=== PATIENT | male | born 1955 | race Caucasian/White ===

== ENCOUNTER 2018-09-11 14:24 | Outpatient (CLI) | payer OTHER ==
--- NOTE | 2018-09-11 15:50 | CT ---
CT ANGIOGRAM THORAX AND ABDOMEN WITH IV CONTRAST AND 3-D RECONSTRUCTIONS CLINICAL INDICATION: Follow-up thoracic aortic aneurysm. COMPARISON: 06/02/2016 FINDINGS: Pulmonary arteries: No filling defects are seen in the pulmonary arteries to suggest a pulmonary embo brady. Aorta and arterial vessels: There is stable mild ectasia of the ascending thoracic aorta measuring 3. 8 cm. There is no evidence of an aneurysm involving the thoracic or abdominal aorta, and there is no evidence of an aortic dissection. Mild atherosclerotic plaque and calcifications are seen in the i nfrarenal abdominal aorta. Visualized proximal common iliac arteries are patent. Origin of the great vessels are patent. The celiac, superior mesenteric, and inferior mesenteric arteries are patent. Single patent bilateral renal arteries are again seen. Lungs: Clear without evidence of consolidation or pleural effusion. Mediastinum: There is no evidence of lymphadenopathy. Thyroid gland: Normal CT appearance. Osseous structures: Degenerative changes are seen in the thoracic spine. Postsurgical changes related to anterior cervical fusion of the lower cervical spine are partially imaged. Bilateral pars defects are seen at L5 with grade 1 anterolisthesis noted. Chest wall: No abnormality visualized. Abdomen: Too small to characterize hypodense lesions are seen in the left hepatic lobe which are stab le in size compared to prior noncontrasted CT examination in 2017. The spleen, pancreas, bilateral adrenal glands, and kidneys demonstrate a normal CT appearance for ar terial phase of imaging. A [id number] amount of retained fecal material is seen in the colon. Tiny fat-containing umbilical hernia. IMPRESSION: 1. The thoracic aorta is mildly ectatic. There is no evidence of an aneurysm involving the thoracic o r abdominal aorta, and there is no evidence of an aortic dissection. 2. Mild atherosclerotic plaque in the infrarenal abdominal aorta. 3. Stable subcentimeter too small to characterize hypodense lesions left hepatic lobe. 4. Spondylolisthesis lumbosacral junction.
== END 2018-09-11 14:25 | disposition home or self-care (01) ==
LOC: BICCT 14:24
PROVIDERS: ATTEND Internal Medicine Cardiovascular Disease
DX: I71.2 Thoracic aortic aneurysm, without rupture (principal); I10 Essential (primary) hypertension; I77.810 Thoracic aortic ectasia; I70.0 Atherosclerosis of aorta; M43.17 Spondylolisthesis, lumbosacral region; K76.9 Liver disease, unspecified
CPT/HCPCS: 71275; 82565

== ENCOUNTER 2021-05-14 14:35 | Outpatient (CLI) | payer BC | END 2021-05-14 14:36 | disposition home or self-care (01) | LOC: BICRAD 14:35 | PROVIDERS: ATTEND Family Medicine | DX: M54.2 Cervicalgia (principal); M47.812 Spondylosis without myelopathy or radiculopathy, cervical region; Z98.1 Arthrodesis status | CPT/HCPCS: 72052 ==

== ENCOUNTER 2022-11-29 09:09 | Emergency (ER) | payer MEDICARE ==
[2022-11-29] MEDS ORDERED: Ketorolac Tromethamine 30 MG/ML VIAL ONE (09:31)
[2022-11-29 10:41] LABS: #Monocytes 0.6 thou/uL (0.11-0.59); %Basophils 0.2 % (0.0-1.0); %Eosinophils 0.2 % (0.0-10.0); %Lymphocytes 12.4 % (21.0-51.0); %Monocytes 4.7 % (0.0-10.0); %Neutrophils 80.9 % (42.0-75.0); Hematocrit 36.3 % (42.0-52.0); Hemoglobin 10.5 g/dL (14.0-18.0); Mean Corpuscular HGB CONC 28.9 g/dL (32.0-36.0); Mean Corpuscular Hemoglobin 21.4 pg (27.0-31.0); Mean Corpuscular Volume 73.9 fl (78.0-98.0); Mean Platelet Volume 9.8 fL (7.4-10.4); Platelet Count 306 10x3/uL (130-400); RBC Distribution Width 17.8 % (11.5-14.5); Red Blood Cell (RBC) Count 4.91 mill/uL (4.70-6.10); White Blood Cell (WBC) Count 12.4 10x3/uL (4.8-10.8)
[2022-11-29 11:22] LABS: CellaVision Operator ID LAB.GE; Elliptocytes SLIGHT = 2-5 cells HPF (0-1); Microcytosis SLIGHT = 6-15 cells HPF (0-5); Platelet Adequacy Comment Platelets Normal; Polychromasia MODERATE = 3-4 cells HPF (0-2)
[2022-11-29 11:44] LABS: ALT (SGPT) 25 U/L (8-55); AST (SGOT) 18 U/L (5-34); Albumin 4.6 g/dL (3.4-4.8); Alkaline Phosphatase 73 U/L (40-110); Anion Gap 14 mmol/L (10-20); BUN (Urea Nitrogen) 19 mg/dL (8.4-25.7); Bilirubin, Total 0.8 mg/dL (0.2-1.2); Calc. Creatinine Clearance 0 mL/min (70-130); Calcium 9.5 mg/dL (7.8-10.44); Carbon Dioxide 24 mmol/L (23-31); Chloride 104 mmol/L (98-107); Estimated GFR 67; Globulin 2.8 g/dL (2.4-3.5); Glucose 126 mg/dL (80-115); Protein, Total 7.4 g/dL (5.8-8.1); Sodium 138 mmol/L (136-145)
== END 2022-11-29 12:20 | disposition short-term general hospital (02) ==
LOC: ERS 09:09
DX: M54.17 Radiculopathy, lumbosacral region (principal); M51.36 Other intervertebral disc degeneration, lumbar region; I10 Essential (primary) hypertension; Z79.899 Other long term (current) drug therapy; Z79.82 Long term (current) use of aspirin
CPT/HCPCS: 36415; 72131; 80053; 85025; 85652; 86140; 96372; J1885

== ENCOUNTER 2023-01-01 09:17 | Inpatient (IN) | payer MEDICARE ==
[2023-01-01 09:40] LABS: #Basophils 0.1 thou/uL (0.0-0.2); #Eosinphils 0.3 thou/uL (0.0-0.7); #Monocytes 0.5 thou/uL (0.11-0.59); #Neutrophils 3.6 thou/uL (1.40-6.50); %Basophils 0.9 % (0.0-1.0); %Eosinophils 3.8 % (0.0-10.0); %Lymphocytes 34.4 % (21.0-51.0); %Monocytes 7.6 % (0.0-10.0); %Neutrophils 52.4 % (42.0-75.0); Hematocrit 38.2 % (42.0-52.0); Hemoglobin 11.4 g/dL (14.0-18.0); Mean Corpuscular HGB CONC 29.8 g/dL (32.0-36.0); Mean Corpuscular Hemoglobin 21.4 pg (27.0-31.0); Mean Corpuscular Volume 71.8 fl (78.0-98.0); Mean Platelet Volume 9.7 fL (7.4-10.4); Platelet Count 297 10x3/uL (130-400); Red Blood Cell (RBC) Count 5.32 mill/uL (4.70-6.10); White Blood Cell (WBC) Count 6.8 10x3/uL (4.8-10.8)
[2023-01-01 09:55] LABS: INR-International Normal Ratio 1.1; PTT 26.6 sec (22.9-36.1); Prothrombin Time 14.4 sec (12.0-14.7)
[2023-01-01 10:02] LABS: ALT (SGPT) 31 U/L (8-55); AST (SGOT) 30 U/L (5-34); Albumin 4.8 g/dL (3.4-4.8); Alkaline Phosphatase 76 U/L (40-110); Anion Gap 18 mmol/L (10-20); BUN (Urea Nitrogen) 16 mg/dL (8.4-25.7); Bilirubin, Total 0.8 mg/dL (0.2-1.2); Calc. Creatinine Clearance 0 mL/min (70-130); Calcium 9.3 mg/dL (7.8-10.44); Carbon Dioxide 20 mmol/L (23-31); Chloride 104 mmol/L (98-107); Estimated GFR 68; Globulin 3.4 g/dL (2.4-3.5); Glucose 132 mg/dL (80-115); Potassium 3.6 mmol/L (3.5-5.1); Protein, Total 8.2 g/dL (5.8-8.1); Sodium 138 mmol/L (136-145)
[2023-01-01 10:06] LABS: Troponin I Less than 0.010 ng/mL (< 0.028)
[2023-01-01] MEDS ORDERED: Aspirin Chewable 81 MG TAB ONE (10:36)
[2023-01-01] MEDS ORDERED: Metoclopramide HCl 10 MG/2 ML VIAL ONE (10:36)
[2023-01-01 10:38] LABS: CellaVision Operator ID LAB.CMB; Ovalocytes MODERATE= 6-15 cells HPF (0-1); Platelet Adequacy Comment Platelets Normal; Polychromasia SLIGHT = 2-3 cells HPF (0-2)
[2023-01-01] MEDS ORDERED: Iopamidol-370 76% 500 ML MDV (1 ML CHARGE) ONE (10:51)
[2023-01-01] MEDS ORDERED: Sodium Chloride 0.9% 1,000 ML IV SCH (11:45)
[2023-01-01] MEDS ORDERED: Senokot S 8.6-50 MG TAB PO PRN (11:45)
[2023-01-01] MEDS ORDERED: Acetaminophen 325 MG TAB PO PRN (11:45)
[2023-01-01] MEDS ORDERED: Ondansetron PF 4 MG/2 ML Vial IVP PRN (11:45)
[2023-01-01] MEDS ORDERED: hydrALAZINE 20 MG/ML VIAL SLOW IVP PRN (11:47)
[2023-01-01 13:18] LABS: Troponin I Less than 0.010 ng/mL (< 0.028)
[2023-01-01 14:53] VITALS: BMI 27.4
[2023-01-01] MEDS ORDERED: FLU VACC QS2023(65UP)/MF59C/PF 60 MCG/0.5 ML SYRINGE IM ONE (15:15)
[2023-01-01] MEDS: Atorvastatin Calcium 40 MG TAB PO SCH (21:49)
[2023-01-02] MEDS: Melatonin 3 MG TAB PO PRN ×2 (00:04→21:05)
[2023-01-02 05:23] LABS: #Eosinphils 0.1 thou/uL (0.0-0.7); #Monocytes 0.6 thou/uL (0.11-0.59); #Neutrophils 4.9 thou/uL (1.40-6.50); %Basophils 0.5 % (0.0-1.0); %Eosinophils 1.1 % (0.0-10.0); %Lymphocytes 23.3 % (21.0-51.0); %Monocytes 8.6 % (0.0-10.0); %Neutrophils 66.1 % (42.0-75.0); Hematocrit 32.4 % (42.0-52.0); Hemoglobin 9.7 g/dL (14.0-18.0); Mean Corpuscular HGB CONC 29.9 g/dL (32.0-36.0); Mean Corpuscular Hemoglobin 21.3 pg (27.0-31.0); Mean Corpuscular Volume 71.2 fl (78.0-98.0); Mean Platelet Volume 9.6 fL (7.4-10.4); Platelet Count 245 10x3/uL (130-400); RBC Distribution Width 17.9 % (11.5-14.5); Red Blood Cell (RBC) Count 4.55 mill/uL (4.70-6.10); White Blood Cell (WBC) Count 7.4 10x3/uL (4.8-10.8)
[2023-01-02 05:25] LABS: Hemoglobin A1c 6.7 % (4.0-6.0)
[2023-01-02 05:57] LABS: Anion Gap 13 mmol/L (10-20); BUN (Urea Nitrogen) 11 mg/dL (8.4-25.7); Calc. Creatinine Clearance 90 mL/min (70-130); Calcium 8.8 mg/dL (7.8-10.44); Carbon Dioxide 24 mmol/L (23-31); Cardiac Risk 3.1 (Less than 4.5); Cholesterol 136 mg/dl (< 200 Desired); Estimated GFR 87; Glucose 113 mg/dL (80-115); HDL Cholesterol 44 mg/dL (>60 Neg Risk); LDL Cholesterol, Calculated 74 mg/dL; Triglycerides 90 mg/dL (Less than 150)
[2023-01-02 06:12] LABS: Chloride 109 mmol/L (98-107); Potassium 3.6 mmol/L (3.5-5.1); Sodium 142 mmol/L (136-145)
[2023-01-02] MEDS: Aspirin 325 mg Enteric Coated Tablet PO SCH (09:48)
[2023-01-02] MEDS ORDERED: Senokot S 8.6-50 MG TAB PO PRN (13:00)
[2023-01-02] MEDS: Atorvastatin Calcium 40 MG TAB PO SCH (21:05)
[2023-01-03] MEDS: Aspirin 325 mg Enteric Coated Tablet PO SCH (09:15)
[2023-01-03 11:59] VITALS: BP 139/85; TEMP 98.6
== END 2023-01-03 13:39 | disposition home health service (06) | DRG 65 ==
LOC: ERS 09:17 → 2SE 11:22
PROVIDERS: ADMIT Family Medicine; ATTEND Internal Medicine
DX: I63.9 Cerebral infarction, unspecified (principal); J93.9 Pneumothorax, unspecified; I10 Essential (primary) hypertension; K21.9 Gastro-esophageal reflux disease without esophagitis; E78.5 Hyperlipidemia, unspecified; Z98.890 Other specified postprocedural states; Z79.899 Other long term (current) drug therapy; E11.9 Type 2 diabetes mellitus without complications; Z79.82 Long term (current) use of aspirin
CPT/HCPCS: 36415; 36416; 70450; 70496; 70498; 70551; 71045; 71046; 80048; 80053; 80061; 83036; 84443; 84484; 85025; 85610; 85730; 90471; 90694; 93005; 93010; 93306; 94760; 96365; G0008; J1650; J2765; J7050; Q9967

== ENCOUNTER 2023-02-06 16:14 | Observation (INO) | payer MEDICARE ==
[~2023-02-06 16:14] MED LIST: Iopamidol-370 76% 500 ML MDV (1 ML CHARGE) ONE
[2023-02-06 18:14] LABS: #Basophils 0.1 thou/uL (0.0-0.2); #Eosinphils 0.1 thou/uL (0.0-0.7); #Monocytes 0.6 thou/uL (0.11-0.59); #Neutrophils 6.3 thou/uL (1.40-6.50); %Basophils 0.6 % (0.0-1.0); %Eosinophils 0.9 % (0.0-10.0); %Lymphocytes 11.2 % (21.0-51.0); %Monocytes 7.9 % (0.0-10.0); Hematocrit 33.2 % (42.0-52.0); Hemoglobin 9.9 g/dL (14.0-18.0); Mean Corpuscular HGB CONC 29.8 g/dL (32.0-36.0); Mean Corpuscular Hemoglobin 21.3 pg (27.0-31.0); Mean Corpuscular Volume 71.4 fl (78.0-98.0); Mean Platelet Volume 9.6 fL (7.4-10.4); Platelet Count 255 10x3/uL (130-400); RBC Distribution Width 17.3 % (11.5-14.5); Red Blood Cell (RBC) Count 4.65 mill/uL (4.70-6.10); White Blood Cell (WBC) Count 7.9 10x3/uL (4.8-10.8)
[2023-02-06 18:21] LABS: ALT (SGPT) 23 U/L (8-55); AST (SGOT) 22 U/L (5-34); Albumin 4.9 g/dL (3.4-4.8); Alkaline Phosphatase 84 U/L (40-110); Anion Gap 13 mmol/L (10-20); BUN (Urea Nitrogen) 13 mg/dL (8.4-25.7); Bilirubin, Total 1.3 mg/dL (0.2-1.2); Calc. Creatinine Clearance 0 mL/min (70-130); Calcium 9.3 mg/dL (7.8-10.44); Carbon Dioxide 24 mmol/L (23-31); Chloride 105 mmol/L (98-107); Estimated GFR 68; Globulin 2.3 g/dL (2.4-3.5); Glucose 165 mg/dL (80-115); Lipase 60 U/L (8-78); Potassium 3.6 mmol/L (3.5-5.1); Protein, Total 7.2 g/dL (5.8-8.1); Sodium 138 mmol/L (136-145)
[2023-02-06 18:22] LABS: Troponin I Less than 0.010 ng/mL (< 0.028)
[2023-02-06 18:41] LABS: Anisocytosis SLIGHT = 6-15 cells HPF (0-5); Burr Cells SLIGHT = 2-5 cells HPF (0-1); CellaVision Operator ID LAB.MJL; Elliptocytes SLIGHT = 2-5 cells HPF (0-1); Hypochromia SLIGHT = 6-15 cells HPF (0-5); Microcytosis SLIGHT = 6-15 cells HPF (0-5); Ovalocytes SLIGHT = 2-5 cells HPF (0-1); Platelet Adequacy Comment Platelets Normal; Poikilocytosis SLIGHT = 6-15 cells HPF (0-5); Polychromasia SLIGHT = 2-3 cells HPF (0-2); Tear Drops SLIGHT = 2-5 cells HPF (0-1)
[2023-02-06] MEDS ORDERED: Lidocaine 2% Viscous Solution 10 ML, Aluminum & Magnesium Hydroxide 30 ML SSW SCH (20:45)
[2023-02-06] MEDS ORDERED: Zolpidem Tartrate 5 MG TAB PO PRN (21:21)
[2023-02-06 21:33] LABS: Troponin I Less than 0.010 ng/mL (< 0.028)
[2023-02-06] MEDS ORDERED: Ondansetron ODT 4 MG TAB PO PRN (21:34)
[2023-02-06] MEDS ORDERED: Acetaminophen 325 MG TAB PO PRN (21:34)
[2023-02-06] MEDS ORDERED: Senokot S 8.6-50 MG TAB PO PRN (21:34)
[2023-02-06 21:50] VITALS: BMI 27.4
[2023-02-07 01:01] LABS: Troponin I Less than 0.010 ng/mL (< 0.028)
[2023-02-07] MEDS ORDERED: Zolpidem Tartrate 5 MG TAB ONE (02:28)
[2023-02-07 05:10] LABS: #Eosinphils 0.1 thou/uL (0.0-0.7); #Monocytes 0.6 thou/uL (0.11-0.59); #Neutrophils 3.3 thou/uL (1.40-6.50); %Basophils 0.6 % (0.0-1.0); %Eosinophils 2.4 % (0.0-10.0); %Lymphocytes 26.5 % (21.0-51.0); %Monocytes 10.7 % (0.0-10.0); %Neutrophils 59.6 % (42.0-75.0); Hemoglobin 9.6 g/dL (14.0-18.0); Mean Corpuscular HGB CONC 29.1 g/dL (32.0-36.0); Mean Corpuscular Hemoglobin 21.3 pg (27.0-31.0); Mean Corpuscular Volume 73.2 fl (78.0-98.0); Mean Platelet Volume 9.6 fL (7.4-10.4); Platelet Count 247 10x3/uL (130-400); RBC Distribution Width 17.4 % (11.5-14.5); Red Blood Cell (RBC) Count 4.51 mill/uL (4.70-6.10); White Blood Cell (WBC) Count 5.4 10x3/uL (4.8-10.8)
[2023-02-07 05:37] LABS: Anion Gap 10 mmol/L (10-20); BUN (Urea Nitrogen) 9 mg/dL (8.4-25.7); Calc. Creatinine Clearance 82 mL/min (70-130); Calcium 8.7 mg/dL (7.8-10.44); Carbon Dioxide 26 mmol/L (23-31); Chloride 107 mmol/L (98-107); Estimated GFR 81; Glucose 117 mg/dL (80-115); Potassium 4.2 mmol/L (3.5-5.1); Sodium 139 mmol/L (136-145)
[2023-02-07] MEDS ORDERED: Lisinopril 20 MG TAB PO SCH (09:00)
[2023-02-07] MEDS ORDERED: Metoprolol Tartrate 25 MG TAB PO SCH (09:00)
[2023-02-07] MEDS ORDERED: Aspirin 81 mg Enteric Coated Tablet PO SCH (09:00)
[2023-02-07] MEDS ORDERED: Clopidogrel Bisulfate 75 MG TAB PO SCH (09:00)
[2023-02-07] MEDS ORDERED: Multivit, Therapeutic 1 TAB PO SCH (09:00)
[2023-02-07] MEDS ORDERED: Lisinopril 10 MG TAB ONE (09:18)
[2023-02-07] MEDS ORDERED: Clopidogrel Bisulfate 75 MG TAB ONE (09:18)
[2023-02-07] MEDS ORDERED: Multivit, Therapeutic 1 TAB ONE (09:18)
[2023-02-07] MEDS ORDERED: Aspirin Chewable 81 MG TAB ONE (09:18)
[2023-02-07] MEDS ORDERED: Metoprolol Tartrate 25 MG TAB ONE (09:19)
[2023-02-07 11:54] VITALS: TEMP 97.5
[2023-02-07 13:49] VITALS: BP 176/104
[2023-02-07] MEDS ORDERED: Atorvastatin Calcium 40 MG TAB PO SCH (21:00)
== END 2023-02-07 15:00 | disposition home or self-care (01) ==
LOC: ERS 16:14 → ERHOLD 20:29
PROVIDERS: ADMIT Student in an Organized Health Care Education/Training Program; ATTEND Emergency Medicine
DX: K21.9 Gastro-esophageal reflux disease without esophagitis (principal); R42 Dizziness and giddiness; D64.9 Anemia, unspecified; I10 Essential (primary) hypertension; R47.01 Aphasia; Z86.73 Personal history of transient ischemic attack (TIA), and cerebral infarction without residual deficits; Z79.899 Other long term (current) drug therapy
CPT/HCPCS: 71045; 71275; 74174; 80048; 80053; 83690; 84484 ×3; 85025 ×2; 85379; 93005; G0378 ×2; 36415; Q9967

== ENCOUNTER 2023-03-29 06:12 | Day surgery (SDC) | payer MEDICARE ==
[2023-03-24 11:34] VITALS: BMI 25.4
[2023-03-29] MEDS ORDERED: PROPOFOL 60 ML ONE ×2 (07:12→07:58)
[2023-03-29] MEDS ORDERED: Midazolam HCl 2 mg/2 ml Vial ONE (07:12)
== END 2023-03-29 09:38 | disposition home or self-care (01) ==
LOC: SDC 06:12
PROVIDERS: ATTEND Internal Medicine Gastroenterology
PROC: 0DJD8ZZ Inspection of Lower Intestinal Tract, Via Natural or Artificial Opening Endoscopic (ICD-10-PCS; principal; 2023-03-29)
PROC: 0DJ08ZZ Inspection of Upper Intestinal Tract, Via Natural or Artificial Opening Endoscopic (ICD-10-PCS; 2023-03-29)
DX: K57.30 Diverticulosis of large intestine without perforation or abscess without bleeding (principal); K64.8 Other hemorrhoids; K44.9 Diaphragmatic hernia without obstruction or gangrene; K62.5 Hemorrhage of anus and rectum; K59.00 Constipation, unspecified; K21.9 Gastro-esophageal reflux disease without esophagitis; E78.5 Hyperlipidemia, unspecified; I10 Essential (primary) hypertension; Z98.890 Other specified postprocedural states; Z79.899 Other long term (current) drug therapy
CPT/HCPCS: J2250; J2704

== ENCOUNTER 2023-05-02 15:02 | Inpatient (IN) | payer MEDICARE ==
[2023-05-02 15:34] LABS: #Basophils 0.1 thou/uL (0.0-0.2); #Eosinphils 0.2 thou/uL (0.0-0.7); #Monocytes 0.6 thou/uL (0.11-0.59); #Neutrophils 3.1 thou/uL (1.40-6.50); %Basophils 1.5 % (0.0-1.0); %Eosinophils 3.8 % (0.0-10.0); %Lymphocytes 31.9 % (21.0-51.0); %Monocytes 10.5 % (0.0-10.0); Hematocrit 30.2 % (42.0-52.0); Hemoglobin 8.6 g/dL (14.0-18.0); Mean Corpuscular HGB CONC 28.5 g/dL (32.0-36.0); Mean Corpuscular Hemoglobin 18.9 pg (27.0-31.0); Mean Corpuscular Volume 66.5 fl (78.0-98.0); Mean Platelet Volume 9.3 fL (7.4-10.4); Platelet Count 262 10x3/uL (130-400); RBC Distribution Width 16.9 % (11.5-14.5); Red Blood Cell (RBC) Count 4.54 mill/uL (4.70-6.10)
[2023-05-02 15:47] LABS: PTT 26.4 sec (22.9-36.1); Prothrombin Time 14.8 sec (12.0-14.7)
[2023-05-02 15:48] LABS: INR-International Normal Ratio 1.2
[2023-05-02 15:51] LABS: ALT (SGPT) 23 U/L (8-55); AST (SGOT) 22 U/L (5-34); Albumin 4.5 g/dL (3.4-4.8); Alkaline Phosphatase 78 U/L (40-110); Anion Gap 13 mmol/L (10-20); BUN (Urea Nitrogen) 17 mg/dL (8.4-25.7); Bilirubin, Total 1.2 mg/dL (0.2-1.2); CK (CPK) 189 U/L (30-200); Calc. Creatinine Clearance 0 mL/min (70-130); Calcium 8.7 mg/dL (7.8-10.44); Carbon Dioxide 21 mmol/L (23-31); Chloride 104 mmol/L (98-107); Estimated GFR 75; Glucose 183 mg/dL (80-115); Potassium 3.6 mmol/L (3.5-5.1); Protein, Total 7.5 g/dL (5.8-8.1); Sodium 134 mmol/L (136-145)
[2023-05-02 15:55] LABS: Troponin I Less than 0.010 ng/mL (< 0.028)
[2023-05-02] MEDS ORDERED: Aspirin Chewable 81 MG TAB ONE (16:04)
[2023-05-02 16:14] LABS: Anisocytosis SLIGHT = 6-15 cells HPF (0-5); Burr Cells SLIGHT = 2-5 cells HPF (0-1); CellaVision Operator ID LAB.MJL; Elliptocytes SLIGHT = 2-5 cells HPF (0-1); Hypochromia SLIGHT = 6-15 cells HPF (0-5); Microcytosis SLIGHT = 6-15 cells HPF (0-5); Ovalocytes SLIGHT = 2-5 cells HPF (0-1); Platelet Adequacy Comment Platelets Normal; Poikilocytosis SLIGHT = 6-15 cells HPF (0-5); Polychromasia SLIGHT = 2-3 cells HPF (0-2)
[2023-05-02 18:51] LABS: Bacteria/HPF None Seen HPF (None Seen); Bilirubin Negative (Negative); Blood, Urine Negative (Negative); CAUTI Indications for Culture < 2yrs of age; Clarity Clear (Clear); Glucose, Urine (Dipstick) Normal (Negative); Ketone, Urine Negative (Negative); Leukocyte Negative Leu/uL (Negative); Nitrite Negative (Negative); Protein, Urine (Dipstick) Negative (Neg-Trace); RBC/HPF 0-3 HPF (0-3); Specific Gravity, Urine 1.025 (1.002-1.036); Squamous Epithelial None Seen HPF (0-3); Urobilinogen Normal mg/dL (Less than 2); WBC/HPF None Seen HPF (0-3); pH, Urine 6.5 (5.0-9.0)
[2023-05-02 18:53] LABS: Urine Culture Reflex Yes Yes
[2023-05-02] MEDS: Atorvastatin Calcium 40 MG TAB PO SCH (22:26)
[2023-05-03 00:05] VITALS: BMI 26.6
[2023-05-03] MEDS: Melatonin 3 MG TAB PO PRN (02:39)
[2023-05-03 05:49] LABS: Cardiac Risk 2.6 (Less than 4.5); Iron 14 ug/dL (65-175); Iron Binding Capacity, Total 443 mcg/dL (261-462)
[2023-05-03] MEDS ORDERED: Glucagon 1 MG/ML KIT IM PRN (07:21)
[2023-05-03] MEDS ORDERED: Dextrose 50% Abboject 50 ML SYRINGE SLOW IVP PRN (07:21)
[2023-05-03] MEDS ORDERED: Dextrose 5% in Water 1,000 ML IV PRN (07:21)
[2023-05-03] MEDS ORDERED: HumaLOG 300 UNITS/3 ML VIAL SC PRN (07:21)
[2023-05-03 07:40] LABS: #Eosinphils 0.1 thou/uL (0.0-0.7); #Monocytes 0.5 thou/uL (0.11-0.59); #Neutrophils 3.8 thou/uL (1.40-6.50); %Basophils 0.7 % (0.0-1.0); %Eosinophils 1.7 % (0.0-10.0); %Lymphocytes 22.7 % (21.0-51.0); %Monocytes 8.6 % (0.0-10.0); Hematocrit 30.6 % (42.0-52.0); Hemoglobin 8.4 g/dL (14.0-18.0); Mean Corpuscular HGB CONC 27.5 g/dL (32.0-36.0); Mean Corpuscular Hemoglobin 18.4 pg (27.0-31.0); Mean Corpuscular Volume 67.1 fl (78.0-98.0); Mean Platelet Volume 8.7 fL (7.4-10.4); Platelet Count 237 10x3/uL (130-400); RBC Distribution Width 17.1 % (11.5-14.5); Red Blood Cell (RBC) Count 4.56 mill/uL (4.70-6.10); White Blood Cell (WBC) Count 5.7 10x3/uL (4.8-10.8)
[2023-05-03 08:05] LABS: Anion Gap 12 mmol/L (10-20); BUN (Urea Nitrogen) 11 mg/dL (8.4-25.7); Calc. Creatinine Clearance 79 mL/min (70-130); Carbon Dioxide 23 mmol/L (23-31); Chloride 104 mmol/L (98-107); Estimated GFR 77; Glucose 127 mg/dL (80-115); Potassium 3.5 mmol/L (3.5-5.1); Sodium 135 mmol/L (136-145)
[2023-05-03] MEDS: Clopidogrel Bisulfate 75 MG TAB PO SCH (08:58)
[2023-05-03] MEDS: Aspirin 81 mg Enteric Coated Tablet PO SCH (08:58)
[2023-05-03] MEDS: Enoxaparin 40 MG (0.4 mL) SYRINGE SC SCH (08:59)
[2023-05-03 12:33] LABS: ANA Symphony (Qualitative) Negative (Negative); ANA Symphony (Quantitative) 0.4 Ratio (< 0.7 Negative); dsDNA IgG Antibody 1.3 IU/mL (<10 Negative)
[2023-05-03] MEDS: metFORMIN XR 500 MG ER.TAB PO SCH (12:39)
[2023-05-03] MEDS: Ferrous Sulfate 325 MG TAB PO SCH (16:41)
[2023-05-03] MEDS: Acetaminophen 325 MG TAB PO PRN (17:44)
[2023-05-03] MEDS: Metoprolol Tartrate 25 MG TAB PO SCH (20:00)
[2023-05-03] MEDS: Lisinopril 20 MG TAB PO SCH (20:16)
[2023-05-04] MEDS: Amlodipine 5 MG TAB PO SCH (09:59)
[2023-05-04] MEDS: metFORMIN XR 500 MG ER.TAB PO SCH (10:00)
[2023-05-04] MEDS: Iron, Sodium Ferric Gluconate 250 MG in Sodium Chloride 0.9% 250 ML 250 ML IVPB SCH (12:42)
[2023-05-05] MEDS ORDERED: Lidocaine 1% w/Epinephrine 1:100K 20 ML VIAL ONE (11:30)
[2023-05-05 12:35] VITALS: BP 134/75; TEMP 98
== END 2023-05-05 13:01 | disposition home or self-care (01) | DRG 42 ==
LOC: ERS 15:02 → 2SE 17:23
PROVIDERS: ADMIT Internal Medicine; ATTEND Internal Medicine
PROC: 0JH632Z Insertion of Monitoring Device into Chest Subcutaneous Tissue and Fascia, Percutaneous Approach (ICD-10-PCS; principal; 2023-05-05)
DX: I63.9 Cerebral infarction, unspecified (principal); I10 Essential (primary) hypertension; K21.9 Gastro-esophageal reflux disease without esophagitis; E78.00 Pure hypercholesterolemia, unspecified; D64.9 Anemia, unspecified; D50.0 Iron deficiency anemia secondary to blood loss (chronic); E78.5 Hyperlipidemia, unspecified; K64.8 Other hemorrhoids; Z98.890 Other specified postprocedural states; Z79.82 Long term (current) use of aspirin; Z79.899 Other long term (current) drug therapy
CPT/HCPCS: 33285; 36415; 36416; 70450; 70496; 70498; 70551; 80048; 80053; 80061; 81001; 82274; 82550; 82728; 83036; 83090; 83540; 83550; 84484; 85025; 85610; 85730; 86038; 86225; 87086; 93005; C1764; J1650; J2916; J7050; Q9967

== ENCOUNTER 2023-05-25 16:00 | Outpatient (CLI) | payer MEDICARE | END 2023-05-25 16:01 | disposition home or self-care (01) | LOC: SLEEPLAB 16:00 | PROVIDERS: ATTEND Family Medicine | DX: G47.33 Obstructive sleep apnea (adult) (pediatric) (principal); R06.83 Snoring; G47.10 Hypersomnia, unspecified; I10 Essential (primary) hypertension; E11.9 Type 2 diabetes mellitus without complications; G47.00 Insomnia, unspecified; G47.61 Periodic limb movement disorder | CPT/HCPCS: 36415; 80053; 83036; 85025; 95810 ==

== ENCOUNTER 2024-01-09 13:52 | Outpatient (CLI) | payer MEDICARE ==
[2024-01-09 15:19] LABS: #Basophils 0.05 10x3/uL (0.0-0.2); %Basophils 0.7 % (0.0-1.0); %Eosinophils 3.6 % (0.0-10.0); %Lymphocytes 23.4 % (21.0-51.0); %Monocytes 7.2 % (0.0-10.0); %Neutrophils 64.8 % (42.0-75.0); Hematocrit 44.8 % (42.0-52.0); Hemoglobin 15.9 g/dL (14.0-18.0); Mean Corpuscular HGB CONC 35.5 g/dL (32.0-36.0); Mean Corpuscular Hemoglobin 32.1 pg (27.0-31.0); Mean Corpuscular Volume 90.3 fL (78.0-98.0); Mean Platelet Volume 9.9 fL (7.4-10.4); Platelet Count 161 10x3/uL (130-400); RBC Distribution Width 13.4 % (11.5-14.5); Red Blood Cell (RBC) Count 4.96 mill/uL (4.70-6.10)
[2024-01-09 15:42] LABS: ALT (SGPT) 45 U/L (8-55); AST (SGOT) 30 U/L (5-34); Albumin 4.2 g/dL (3.4-4.8); Alkaline Phosphatase 74 U/L (40-110); Anion Gap 12 mmol/L (10-20); BUN (Urea Nitrogen) 16 mg/dL (8.4-25.7); Bilirubin, Total 1.5 mg/dL (0.2-1.2); Calc. Creatinine Clearance 0 mL/min (70-130); Calcium 9.3 mg/dL (7.8-10.44); Carbon Dioxide 25 mmol/L (23-31); Chloride 107 mmol/L (98-107); Estimated GFR 92; Globulin 2.7 g/dL (2.4-3.5); Glucose 119 mg/dL (80-115); Potassium 3.7 mmol/L (3.5-5.1); Protein, Total 6.9 g/dL (5.8-8.1); Sodium 140 mmol/L (136-145)
== END 2024-01-09 13:53 | disposition home or self-care (01) ==
LOC: LABBT 13:52
PROVIDERS: ATTEND Surgery
DX: Z01.812 Encounter for preprocedural laboratory examination (principal); K64.9 Unspecified hemorrhoids
CPT/HCPCS: 80053; 85025; 93005; 93010

== ENCOUNTER 2024-01-12 06:02 | Day surgery (SDC) | payer MEDICARE ==
[2024-01-09 14:14] VITALS: BMI 25.5
[2024-01-12] MEDS ORDERED: Bacitracin Zinc Ointment 30 gm TUBE ONE (06:39)
[2024-01-12] MEDS ORDERED: EPINEPHrine 1 MG/ML VIAL ONE (06:39)
[2024-01-12] MEDS ORDERED: Bupivacaine 0.25% HCL 30 ML VIAL ONE (06:39)
[2024-01-12] MEDS ORDERED: Rocuronium Bromide 10 MG/ML (10ML VIAL) ONE (06:45)
[2024-01-12] MEDS ORDERED: Ondansetron PF 4 MG/2 ML Vial ONE (06:45)
[2024-01-12] MEDS ORDERED: PROPOFOL 0 ML ONE (06:45)
[2024-01-12] MEDS ORDERED: fentaNYL PF 100 MCG/2 ML SYRINGE ONE (06:45)
[2024-01-12] MEDS ORDERED: Dexamethasone 4 mg/ml Vial ONE (06:45)
[2024-01-12] MEDS ORDERED: Lidocaine 1% PF 5 ML VIAL ONE (06:45)
[2024-01-12] MEDS ORDERED: ePHEDrine Sulfate 50 MG/10 ML VIAL ONE (06:46)
[2024-01-12] MEDS ORDERED: PHENYLEPHRINE-NS 100 MCG/ML 10 ML SYRINGE ONE (06:46)
[2024-01-12] MEDS ORDERED: Vasopressin 20 UNITS/ML VIAL ONE (06:47)
[2024-01-12] MEDS ORDERED: Midazolam HCl 2 mg/2 ml Vial ONE (06:52)
[2024-01-12] MEDS ORDERED: PROPOFOL 20 ML ONE (06:53)
[2024-01-12] MEDS ORDERED: cefOXitin 2 GM VIAL ONE (07:21)
[2024-01-12] MEDS ORDERED: SUGAMMADEX SODIUM 200 MG/2 ML VIAL ONE ×3 (07:57→08:18)
[2024-01-12] MEDS ORDERED: Dexmedetomidine 200 MCG/2 ML VIAL ONE ×2 (08:15→08:16)
[2024-01-12] MEDS ORDERED: Ipratropium/Albuterol 3 ML NEB ONE (08:26)
[2024-01-12] MEDS ORDERED: HYDROcodone/Acetaminophen 5/325 mg Tablet ONE (09:25)
== END 2024-01-12 10:45 | disposition home or self-care (01) ==
LOC: SDC 06:02
PROVIDERS: ATTEND Surgery
PROC: 06BY0ZC Excision of Hemorrhoidal Plexus, Open Approach (ICD-10-PCS; principal; 2024-01-12)
DX: K64.2 Third degree hemorrhoids (principal); I10 Essential (primary) hypertension
CPT/HCPCS: 46947; J0171; J0665; J0694; J1100; J2250; J2405; J2704; 88304; J7620

== ENCOUNTER 2024-05-15 13:32 | Observation (INO) | payer MEDICARE ==
[2024-05-15 14:08] LABS: #Basophils 0.04 10x3/uL (0.0-0.2); %Basophils 0.6 % (0.0-1.0); %Eosinophils 1.8 % (0.0-10.0); %Lymphocytes 22.8 % (21.0-51.0); %Monocytes 8.7 % (0.0-10.0); %Neutrophils 65.5 % (42.0-75.0); Hematocrit 46.6 % (42.0-52.0); Hemoglobin 16.7 g/dL (14.0-18.0); Mean Corpuscular HGB CONC 35.8 g/dL (32.0-36.0); Mean Corpuscular Hemoglobin 31.8 pg (27.0-31.0); Mean Corpuscular Volume 88.8 fL (78.0-98.0); Mean Platelet Volume 9.9 fL (7.4-10.4); Platelet Count 151 10x3/uL (130-400); Red Blood Cell (RBC) Count 5.25 mill/uL (4.70-6.10)
[2024-05-15 14:32] LABS: ALT (SGPT) 42 U/L (Less than 45); AST (SGOT) 34 U/L (11-34); Albumin 4.4 g/dL (3.1-4.5); Alkaline Phosphatase 86 U/L (40-110); Anion Gap 14 mmol/L (10-20); BUN (Urea Nitrogen) 14 mg/dL (8.4-25.7); Calc. Creatinine Clearance 0 mL/min (70-130); Calcium 9.2 mg/dL (7.8-10.44); Carbon Dioxide 23 mmol/L (23-31); Chloride 104 mmol/L (98-107); Estimated GFR 82; Globulin 3.1 g/dL (2.4-3.5); Glucose 177 mg/dL (80-115); Potassium 3.7 mmol/L (3.5-5.1); Protein, Total 7.5 g/dL (5.8-8.1)
[2024-05-15 14:36] LABS: Troponin I Less than 0.010 ng/mL (< 0.028)
[2024-05-15 14:41] LABS: INR-International Normal Ratio 1.1; PTT 27.9 sec (22.9-36.1); Prothrombin Time 14.3 sec (12.0-14.7)
[2024-05-15 15:07] LABS: Sodium 140 mmol/L (136-145)
[2024-05-15] MEDS ORDERED: Senokot S 8.6-50 MG TAB PO PRN (16:40)
[2024-05-15] MEDS ORDERED: Acetaminophen 325 MG TAB PO PRN (16:40)
[2024-05-15] MEDS ORDERED: Ondansetron ODT 4 MG TAB PO PRN (16:40)
[2024-05-15] MEDS ORDERED: hydrALAZINE 20 MG/ML VIAL SLOW IVP PRN (16:40)
[2024-05-15] MEDS ORDERED: Ondansetron PF 4 MG/2 ML Vial IVP PRN (16:40)
[2024-05-15] MEDS ORDERED: Calcium Carbonate 500 MG ChewTAB PO PRN (16:40)
[2024-05-15] MEDS ORDERED: Bisacodyl 5 MG TAB PO PRN (16:40)
[2024-05-15] MEDS: Atorvastatin Calcium 40 MG TAB PO SCH (22:20)
[2024-05-16 01:37] VITALS: BMI 25.4
[2024-05-16 04:24] LABS: #Basophils 0.05 10x3/uL (0.0-0.2); %Basophils 0.8 % (0.0-1.0); %Eosinophils 2.5 % (0.0-10.0); %Lymphocytes 28.5 % (21.0-51.0); %Monocytes 12.5 % (0.0-10.0); %Neutrophils 55.4 % (42.0-75.0); Hematocrit 45.1 % (42.0-52.0); Hemoglobin 15.7 g/dL (14.0-18.0); Mean Corpuscular HGB CONC 34.8 g/dL (32.0-36.0); Mean Corpuscular Hemoglobin 31.3 pg (27.0-31.0); Mean Platelet Volume 10.1 fL (7.4-10.4); Platelet Count 147 10x3/uL (130-400); RBC Distribution Width 12.9 % (11.5-14.5); Red Blood Cell (RBC) Count 5.01 mill/uL (4.70-6.10)
[2024-05-16 04:46] LABS: Anion Gap 13 mmol/L (10-20); BUN (Urea Nitrogen) 13 mg/dL (8.4-25.7); Calc. Creatinine Clearance 83 mL/min (70-130); Calcium 8.8 mg/dL (7.8-10.44); Carbon Dioxide 25 mmol/L (23-31); Cardiac Risk 2.9 (Less than 4.5); Chloride 107 mmol/L (98-107); Cholesterol 101 mg/dl (< 200 Desired); Estimated GFR 85; Glucose 113 mg/dL (80-115); HDL Cholesterol 35 mg/dL (>60 Neg Risk); LDL Cholesterol, Calculated 41 mg/dL; Potassium 3.8 mmol/L (3.5-5.1); Sodium 141 mmol/L (136-145); Triglycerides 127 mg/dL (Less than 150)
[2024-05-16] MEDS: Clopidogrel Bisulfate 75 MG TAB PO SCH (08:40)
[2024-05-16] MEDS: Aspirin 81 mg Enteric Coated Tablet PO SCH (08:40)
[2024-05-16] MEDS: metFORMIN XR 500 MG ER.TAB PO SCH (08:40)
[2024-05-16 12:42] VITALS: BP 162/97; TEMP 97.8
== END 2024-05-16 17:20 | disposition home or self-care (01) ==
LOC: ERS 13:32 → ERHOLD 16:11 → 2SE 16:22
PROVIDERS: ADMIT Internal Medicine; ATTEND Internal Medicine
DX: G45.9 Transient cerebral ischemic attack, unspecified (principal); I10 Essential (primary) hypertension; E11.9 Type 2 diabetes mellitus without complications; E78.5 Hyperlipidemia, unspecified; K21.9 Gastro-esophageal reflux disease without esophagitis; D64.9 Anemia, unspecified; Z98.890 Other specified postprocedural states; Z79.1 Long term (current) use of non-steroidal anti-inflammatories (NSAID); Z79.02 Long term (current) use of antithrombotics/antiplatelets; Z79.84 Long term (current) use of oral hypoglycemic drugs; Z79.899 Other long term (current) drug therapy
CPT/HCPCS: 70450; 70551; 71045; 80048; 80053; 80061; 82962; 84484; 85025 ×2; 85610; 85730; 93005; 93880; 94760; 95700; 95711; 95957; 99285; G0378 ×3; 36415; 36416

== ENCOUNTER 2024-11-14 09:09 | Outpatient (CLI) | payer MEDICARE ==
[2024-11-14 10:37] LABS: Estimated GFR - POC 82.0
== END 2024-11-14 09:10 | disposition home or self-care (01) ==
LOC: MRI 09:09
PROVIDERS: ATTEND Psychiatry & Neurology Neurology
DX: I63.9 Cerebral infarction, unspecified (principal); R90.82 White matter disease, unspecified; I73.9 Peripheral vascular disease, unspecified
CPT/HCPCS: 36415; 70544; 70547; 70553; 76376; 82565

== ENCOUNTER 2024-12-11 07:33 | Outpatient (CLI) | payer MEDICARE ==
[2024-12-11 08:22] LABS: Estimated GFR - POC 82.0
[2024-12-11] MEDS ORDERED: Iopamidol-370 76% 500 ML MDV (1 ML CHARGE) ONE (10:20)
== END 2024-12-11 07:34 | disposition home or self-care (01) ==
LOC: CT 07:33
PROVIDERS: ATTEND Internal Medicine Cardiovascular Disease
DX: I71.20 Thoracic aortic aneurysm, without rupture, unspecified (principal)
CPT/HCPCS: 36415; 71275; 82565; Q9967

== ENCOUNTER 2024-12-25 14:28 | Outpatient (CLI) | payer MEDICARE | END 2024-12-25 14:29 | disposition home or self-care (01) | LOC: RAD 14:28 | PROVIDERS: ATTEND Internal Medicine Cardiovascular Disease | DX: J93.9 Pneumothorax, unspecified (principal) | CPT/HCPCS: 71046 ==